=== PATIENT | female | born 1985 | race Two or more races ===

== ENCOUNTER 2018-08-23 14:02 | Emergency (ER) | payer OTHER ==
[~2018-08-23] VITALS: Ht 162.6 cm; Wt 83.9 kg
[2018-08-23 14:09] VITALS: BP 154/86
[2018-08-23] MEDS ORDERED: htn meds (14:09)
--- NOTE | 2018-08-23 14:13 | NUR ---
ED Nurse Note: pt walked in to ED due to pain on tailbone after fall injury couple days ago. per pt, playing with other people and fell the ground. no head injury. AAO x4. respirations even and non-labored noted. skin warm to touch. no open wound noted.
[2018-08-23] MEDS ORDERED: Acetaminophen 500mg (ES) tab ORAL ONE ×2 (14:15→14:30)
--- NOTE | 2018-08-23 14:45 | NUR ---
ED Nurse Note: RN confirmed with PA, duplicate order for tylenol.
--- NOTE | 2018-08-23 15:48 | Emergency Room Report ---
History of Present Illness General Chief Complaint: Multiple Trauma/Fall Source: Patient (Guillermo Rico) Present Illness HPI 33 year old femal with no significant Past medical history here complaining of pain over her tailbone after falling ago on her back. Patient denies pain radiation, denies numbness or tingling, denies urinary or bowel incontinence denies saddle paresthesia. Patient has been taking Tylenol with minimal relief patient is feeling the pain mostly when changing position from sitting to standing and walking. Denies blood in her stool. Denies all other injuries. Denies chest pain, S OB, palpitation, head injury. Patient is rating the pain is intermittent, 5 out of 10 without radiation (Guillermo Rico) Allergies: Coded Allergies: No Known Allergies (Unverified , 08/23/18) Patient History Past Medical History: see triage record Past Surgical History: none Pertinent Family History: none Last Menstrual Period: 08/21/18 Now: No Immunizations: UTD Reviewed Nursing Documentation: PMH: Agreed; PSxH: Agreed (Guillermo Rico) Nursing Documentation-PMH Past Medical History: No History, Except For Hx Hypertension: Yes (Guillermo Rico) Review of Systems All Other Systems: negative except mentioned in HPI (Guillermo Rico) Physical Exam Vital Signs Date Time Temp Pulse Resp B/P (MAP) Pulse Ox O2 Delivery O2 Flow Rate FiO2 08/23/18 14:07 98.2 90 18 154/86 96 Room Air Sp02 EP Interpretation: reviewed, normal General Appearance: normal inspection, well appearing, no apparent distress, non-toxic Head: normocephalic, atraumatic Eyes: bilateral eye normal inspection, bilateral eye PERRL ENT: normal ENT inspection Neck: normal inspection, full range of motion, supple Respiratory: normal inspection, chest non-tender, lungs clear, no wheezing Cardiovascular #1: normal inspection, regular rate, rhythm, no murmur Gastrointestinal: normal inspection, soft, no mass Rectal: deferred Genitourinary: no CVA tenderness Musculoskeletal: digits/nails normal, gait/station normal, normal range of motion, non-tender, no calf tenderness, pelvis stable, swelling - sacrum and coccyx Neurologic: normal inspection, alert, oriented x3 Psychiatric: normal inspection, judgement/insight normal, memory normal Skin: normal inspection, normal color, no rash, palpation normal Lymphatic: normal inspection, no adenopathy (Guillermo Rico) Medical Decision Making PA Attestation all diagnosis and treatment plans were reviewed and discussed my supervising physician Dr. Cardoza (Guillermo Rico) Diagnostic Impression: Primary Impression: Sacral contusion ER Course 33 year old femal with no significant Past medical history here complaining of pain over her tailbone after falling ago on her back. Patient denies pain radiation, denies numbness or tingling, denies urinary or bowel incontinence denies saddle paresthesia. Patient has been taking Tylenol with minimal relief patient is feeling the pain mostly when changing position from sitting to standing and walking. Denies blood in her stool. Denies all other injuries. Denies chest pain, S OB, palpitation, head injury. Patient is rating the pain is intermittent, 5 out of 10 without radiation Ddx considered but are not limited to sacral fracture, sacral contusion, coccyx fracture Vital signs: are WNL, pt. is afebrile H&PE are most consistent with sacral contusion ORDERS: xray of sacrum and coccyx, voltaren gel ED INTERVENTIONS: None required at this time. DISCHARGE: At this time pt. is stable for d/c to home. Will provide printed patient care instructions, and any necessary prescriptions. Care plan and follow up instructions have been discussed with the patient prior to discharge. PEBBLES saul. follow up with pcp (Guillermo Rico) Other X-Ray Diagnostic Results Other X-Ray Diagnostic Results : X-Ray ordered: sacral xray # of Views/Limited Vs Complete: 3 View Indication: Swelling EP Interpretation: Yes PA Xray: Interpretation reviewed, by supervising MD, and agrees with findings. Interpretation: no dislocation, no soft tissue swelling, no fractures Impression: No acute disease Electronically Signed by: guillermo arango PA-C PA Scribe Text no fracture per radiologist's report (Guillermo Rico) Other X-Ray Diagnostic Results : Electronically Signed by: Paulie Doyle documentation of Xray reviewed by me and is accurate, Aakash Jefferson MD (Aakash Jefferson MD) Last Vital Signs Date Time Temp Pulse Resp B/P (MAP) Pulse Ox O2 Delivery O2 Flow Rate FiO2 08/23/18 14:09 90 18 Room Air 08/23/18 14:09 98.2 154/86 96 (Guillermo Rico) Disposition: HOME, SELF-CARE Condition: Stable Scripts Diclofenac Sodium (VOLTAREN) 100 Gm Gel..gram. 2 GM TP BID, #100 GM Prov: Guillermo Rico 08/23/18 Referrals: [facility],REFERRING (PCP) Patient Instructions: Contusion, [id number] Additional Instructions: Alternate between icing and heating refrain from strenuous physical activityalternatives and icing and heating refrain from strenuous physical activity take medication as directed take medication as direc along with a primary care provider if any new symptoms such as tingling, numbness, follow-up with a primaryedmundo [facility] Guillermo Rico Aug 23, 2018 15:48 Aakash Jefferson MD Aug 24, 2018 16:01
[2018-08-23] MEDS ORDERED: VOLTAREN100 G1 TP (15:49)
[2018-08-23 15:57] VITALS: BP 154/86
--- NOTE | 2018-08-23 15:58 | NUR ---
ER DISCHARGE NOTE: Patient is cleared to be discharged per ERMD, pt is aox4, on room air, with stable vital signs. pt was given dc and prescription instructions, pt was able to verbalize understanding, pt id band removed. pt is able to ambulate with steady gait. pt took all belongings.
--- NOTE | 2018-08-24 10:45 | Diagnostic Imaging Report ---
Indication: Trauma, fall Technique: 2 views of the sacrum and coccyx Comparison: none Findings: Exam is somewhat limited by bowel gas and patient body habitus. No definite acute fractures. Impression: Negative This agrees with the preliminary interpretation provided overnight by [facility] service.
== END 2018-08-23 15:58 | disposition home or self-care (01) ==
LOC: EMR 14:31
DX: S30.0XXA Contusion of lower back and pelvis, initial encounter (principal); W19.XXXA Unspecified fall, initial encounter; Y92.9 Unspecified place or not applicable; I10 Essential (primary) hypertension
CPT/HCPCS: 72220; 99283